=== PATIENT | male | born 1950 | race Caucasian/White ===

== ENCOUNTER 2022-01-10 22:36 | Emergency (ER) | payer OTHER ==
--- OUTSIDE RECORDS SUMMARY | 2022-01-10 22:40 | XMS REPORT | Continuity of Care Document ---
:1950 Author Organization [facility] t Address [address] [place] [address] Care Team Providers Name Role Phone MARELY MONK Attending Clinician Unavailable GIGI CANCHOLA Attending Clinician Unavailable JOSEPH BOYER Attending Clinician Unavailable Nikita May DO Attending Clinician GUERRERO HEMPHILL Attending Clinician Unavailable Rafi Chacon MD Attending Clinician Unknown, Attending Attending Clinician Unavailable Doctor Unassigned, [place] Attending Clinician Unavailable Payers Payer Name Policy Type Policy Number Effective Date Expiration Date S ource Problems Condition Condition Condition Status Onset Resolution Last Treating Co mments Source Name Details Category Date Date Treatment Clinician Date No known No known Disease Unive rs active active ity of problems problems [facility] Allergies, Adverse Reactions, Alerts This patient has no known allergies or adverse reactions. Social History Social Habit Start Date Stop Date Quantity Comments Source History of tobacco Cigarette Smoker University of use [facility] Cigarettes smoked 2019-07-05 2019-07-05 Univers ity of current (pack per 00:00:00 00:00:00 ) - Reported Branch Cigarette 2019-07-05 2019-07-05 University of pack-years 00:00:00 00:00:00 [facility] Alcohol intake 2019-07-05 2019-07-05 Current drinker Unive rsity of 00:00:00 00:00:00 of alcohol [facility] [place] Tobacco use and 2019-07-05 2019-07-05 Never used Universit y of exposure 00:00:00 00:00:00 [facility] Alcohol Comment 2017-11-26 2017-11-26 not drinking Univers ity of 00:00:00 00:00:00 now- social only [facility] Sex Assigned At [birth year] [facility] Smoking Status Start Date Stop Date Source Former smoker 2019-07-05 00:00:00 2019-07-05 00:00:00 [facility] Medications Ordered Filled Start Stop Current Ordering Indication Dosage Frequency Signature Comments Components Source Medication Medication Date Date Medication? Clinician (SIG) Name Name benzonatate 2020-0 Yes [id number] 100mg Take 1 Univers (TESSALON 2-11 capsule by itmaninder of [employer]) 100 00:00: mouth 3 [place] mg capsule 00 (three) Medica l times Branch daily as needed for Cough. fluticasone 2020-0 Yes [id number] 1{spray Use 1 Univers propionate 2-11 } [place] in ity o f 50 00:00: each [place] mcg/actuati 00 nostril Medic al on nasal daily. Branch spray benzonatate 2019-0 Yes [id number] 100mg Take 1 Univers (TESSALON 2-11 capsule by itmaninder of [place]) 100 00:00: mouth 3 [place] as mg capsule 00 (three) Medica l times Branch daily as needed for Cough. fluticasone 2019-0 Yes [id number] 1{spray Use 1 Univers propionate 2-11 } [place] in ity o f 50 00:00: each [place] mcg/actuati 00 nostril Medic al on nasal daily. Branch spray benzonatate 2020-0 Yes [id number] 100mg Take 1 Univers (TESSALON 2-11 capsule by [employer] of [employer]) 100 00:00: mouth 3 [place] as mg capsule 00 (three) Medica l times Branch daily as needed for Cough. fluticasone 2020-0 Yes [id number] 1{spray Use 1 Univers propionate 2-11 } [place] in ity o f 50 00:00: each [place] mcg/actuati 00 nostril Medic al on nasal daily. Branch spray ZOLPIDEM 2017-05 Yes [id number] TAKE 1 Univers mg tablet 0-26 TABLET BY ity o f 00:00: MOUTH [place] 00 EVERY Medical NIGHT AT [place] BEDTIME ZOLPIDEM 10 2017-05 Yes [id number] TAKE 1 Univers mg tablet 0-26 TABLET BY ity o f 00:00: MOUTH [place] 00 EVERY Medical NIGHT AT [place] BEDTIME ZOLPIDEM 10 2017-05 Yes [id number] TAKE 1 Univers mg tablet 0-26 TABLET BY ity o f 00:00: MOUTH [place] 00 EVERY Medical NIGHT AT [place] BEDTIME ZOLPIDEM 2017-05 Yes [id number] TAKE 1 Univers mg tablet 0-26 TABLET BY ity o f 00:00: MOUTH [place] 00 EVERY Medical NIGHT AT [place] BEDTIME cyclobenzap Yes [id number] 10mg Take 1 Univers rine 10 mg 7-05 tablet by ity of tablet 00:00: mouth 2 (two) Medical times [place] daily. lisinopril Yes [id number] 10mg Take 1 U nivers 10 mg 7-05 tablet by ity of tablet 00:00: mouth 00 daily. [facility] Branch finasteride Yes [id number] TK 1 T PO Univers 5 mg tablet 7- 9109 QD ity of 00:00: [place] 00 Medical Branch cyclobenzap Yes [id number] 10mg Take 1 Univers rine 10 mg 7-05 tablet by ity of tablet 00:00: mouth 2 (two) Medical times [place] daily. lisinopril Yes [id number] 10mg Take 1 U nivers 10 mg 7-05 tablet by ity of tablet 00:00: mouth 00 daily. Medical Branch finasteride Yes [id number] TK 1 T PO Univers 5 mg tablet 7- 9109 QD ity of 00:00: [place] 00 Medical Branch cyclobenzap Yes [id number] 10mg Take 1 Univers rine 10 mg 7-05 tablet by ity of tablet 00:00: mouth 2 (two) Medical times [place] daily. lisinopril Yes [id number] 10mg Take 1 U nivers 10 mg 7-05 tablet by ity of tablet 00:00: mouth [place] 00 daily. [facility] Branch finasteride Yes [id number] TK 1 T PO Univers 5 mg tablet 7-05 9109 QD ity of 00:00: [place] 00 Medical Branch cyclobenzap Yes [id number] 10mg Take 1 Univers rine 10 mg 7-05 tablet by ity of tablet 00:00: mouth 2 (two) Medical times [place] daily. lisinopril 2018-0 Yes [id number] 10mg Take 1 U nivers 10 mg 7-05 tablet by ity of tablet 00:00: mouth daily. Medical Branch finasteride 2018-0 Yes [id number] TK 1 T PO Univers 5 mg tablet 7-05 9109 QD ity of 00:00: Medical Branch anastrozole 2017-0 Yes TK 1 T PO U nivers 1 mg tablet 8-14 TWICE A ity o f 00:00: WEEK Medical Branch anastrozole 2016-0 Yes TK 1 T PO U nivers 1 mg tablet 8-14 TWICE A ity o f 00:00: WEEK [facility] anastrozole 2017-0 Yes TK 1 T PO U nivers 1 mg tablet 8-14 TWICE A ity o f 00:00: WEEK [facility] anastrozole 2016-0 Yes TK 1 T PO U nivers 1 mg tablet 8-14 TWICE A ity o f 00:00: WEEK [facility] Immunizations Ordered Filled Immunization Date Status Comments [facility] Immunization Name Name Pneumococcal 13 2017-06-19 Completed Universit y of Conjugate, PCV13 00:00:00 [facility] dical (Prevnar 13) [place] Influenza High Dose 2017-06-19 Completed Unive rsity of 00:00:00 [facility] Pneumococcal 13 2017-06-19 Completed Universit y of Conjugate, PCV13 00:00:00 [facility] dical (Prevnar 13) [place] Influenza High Dose 2017-06-19 Completed Unive rsity of 00:00:00 [facility] Pneumococcal 13 2017-06-19 Completed Universit y of Conjugate, PCV13 00:00:00 [facility] dical (Prevnar 13) Branch Influenza High Dose 2017-06-19 Completed Unive rsity of 00:00:00 [facility] Pneumococcal 13 2017-06-19 Completed Universit y of Conjugate, PCV13 00:00:00 [facility] dical (Prevnar 13) [place] Influenza High Dose 2017-06-19 Completed Unive rsity of 00:00:00 [facility] Vital Signs Vital Name Observation Time Observation Value Comments Source Systolic blood 2019-07-05 21:45:00 150 mm[Hg] Univer sity of pressure [facility] Diastolic blood 2019-07-05 21:45:00 77 mm[Hg] Unive rsity of pressure [facility] Heart rate 2019-07-05 21:45:00 75 /min [facility] Body temperature 2019-07-05 21:45:00 36.67 Diana [facility] Respiratory rate 2019-07-05 21:45:00 20 /min [facility] Body height 2019-07-05 21:45:00 172.7 cm [facility] Body weight 2019-07-05 21:45:00 88.905 kg [facility] BMI 2019-07-05 21:45:00 29.80 kg/m2 [facility] Oxygen saturation in 2019-07-05 21:45:00 93 /min [facility] blood by [facility] Pulse oximetry [place] Procedures Procedure Date / Time Performed Performing Clinician Sourc e POCT RAPID FLU A AND B 2019-07-05 22:23:00 Rafi Chacon [facility] ASSIGNMENT OF BENEFITS 2019-07-05 21:03:50 Doctor Unassigned, No [facility] Encounters Start End Encounter Admission Attending Care Care Encounter Source Date/Time Date/Time Type Type Clinicians Facility Department ID 2021-05-30 2021-05-30 Outpatient [facility] [id number] [place] 00:00:00 00:00:00 MARELY [address] 2021-05-28 2021-05-28 Outpatient [facility] [id number] [place] 00:00:00 00:00:00 MARELY [address] 2021-05-13 2021-05-13 Outpatient [facility] [id number] [address] [place] [address] 00:00:00 00:00:00 MARELY [address] 2021-05-10 2021-05-10 Outpatient [facility] [id number] [address] [place] [address] 00:00:00 00:00:00 MARELY [address] 2021-05-08 2021-05-08 Outpatient [facility] [id number] [address] [place] [address] 00:00:00 00:00:00 MARELY [address] 2021-05-06 2021-05-06 Outpatient LACHO, [facility] [id number] [place] 00:00:00 00:00:00 MARELY [address] 2021-05-02 2021-05-02 Outpatient LACHO, [facility] [id number] [place] 00:00:00 00:00:00 MARELY [address] 2021-04-29 2021-04-29 Outpatient LACHO, [facility] [id number] [place] 00:00:00 00:00:00 MARELY 846 [address] 2021-04-23 2021-04-23 Outpatient LACHO, [facility] [id number] [place] 00:00:00 00:00:00 MARELY [address] 2021-03-05 2021-03-05 Emergency GIGI CANCHOLA [facility] [id number] [place] 00:00:00 00:00:00 512 [facility] 2021-02-14 2021-02-14 Outpatient COSCULLUELA [facility] [id number] [place] 00:00:00 00:00:00 , JOSEPH 840 [facility] i 2021-02-12 2021-02-12 Outpatient COSCULLUELA [facility] [id number] [place] 00:00:00 00:00:00 , JOSEPH 839 [facility] i 2021-02-05 2021-02-05 Outpatient COSCULLUELA [facility] [id number] [place] 00:00:00 00:00:00 , JOSEPH 836 [facility] i 2021-01-29 2021-01-29 Outpatient COSCULLUELA [facility] [id number] [place] 00:00:00 00:00:00 , JOSEPH 834 Method i 2021-01-24 2021-01-24 Outpatient COSCULLUELA [facility] [id number] [place] 00:00:00 00:00:00 , JOSEPH 833 Method i 2021-01-22 2021-01-22 Outpatient COSCULLUELA [facility] [id number] [place] 00:00:00 00:00:00 , JOSEPH 831 [facility] i 2021-01-18 2021-01-18 Outpatient [facility] [id number] [place] 00:00:00 00:00:00 636 [facility] i 2021-01-17 2021-01-[address] [facility] [id number] [place] 00:00:00 00:00:00 , JOSEPH 830 Method i 2021-01-15 2021-01-15 [facility] [id number] [place] 00:00:00 00:00:00 , JOSEPH 828 Method i 2021-01-07 2021-01-[address] [facility] [id number] [place] 00:00:00 00:00:00 , JOSEPH 825 Method i 2021-01-02 2021-01-[address] [facility] [id number] [place] 00:00:00 00:00:00 , JOSEPH 374 Method i 2020-12-21 2020-12-21 Outpatient [facility] [id number] [place] 00:00:00 00:00:00 667 Method i 2020-12-21 2020-12-21 Outpatient [facility] [id number] [place] 00:00:00 00:00:00 270 Method i 2020-07-30 2020-07-30 Patient Lalo RUST [id number] Univers 00:00:00 00:00:00 Outreach Nikita PRIMARY [id number] i ty [id number] [id number] [place] [address] 2020-03-01 2020-03-01 Outpatient GUERRERO HEMPHILL [facility] URO 7507 [facility] 10:38:00 23:59:00 2019-07-05 2019-07-05 Office Ines Rafi Sanam RUST [id number] Univers 15:03:59 15:33:59 Visit Unknown, Attending PRIMARY [id number] it[place] of [id number] [id number] Mt dical [address] [place] 2019-07-05 2019-07-05 Orders Doctor YU [id number] Univers 00:00:00 00:00:00 Only Unassigned, NEL[place] [id number] ity of [place] [facility] [id number] [place] as [id number] [address] 2018-01-11 2018-01-11 Emergency E [facility] [address] [facility] 02:35:00 02:35:00 Results Test Description Test Time Test Comments Results Result Comments Source POCT RAPID FLU A AND B TEST 2019-07-05 22:23:00 Test Item Value Reference Range Interpretation Comme nts POCT INFLUENZA A (test code neg Negative - Negative = 3840) POCT INFLUENZA B (test code neg Negative - Negative = 3841) CIERRA (test code = CIERRA) accurate development and interpretation of all internal controls [facility] [id number] 22:23:00 Test Item Value Reference Range Interpretation Comments POCT INFLUENZA A neg Negative - (test code = 3840) Negative POCT INFLUENZA B neg Negative - (test code = 3841) Negative CIERRA (test code = accurate development and CIERRA) interpretation of all internal controls [facility]
[2022-01-10 23:26] LABS: Absolute Lymphocytes (CBC) 1.9 K/uL (0.7-4.9); Lymphocytes % 27.4 % (15.3-44.8); MCV 91.4 fL (80-100); MPV 8.1 fL (7.6-11.3)
[2022-01-10 23:29] LABS: Protime INR 1.04
[2022-01-10 23:38] LABS: Albumin 3.5 g/dL (3.4-5.0); Bilirubin Direct 0.3 mg/dL (0-0.2); Bilirubin Total 0.9 mg/dL (0.2-1.0); Potassium 3.7 mmol/L (3.5-5.1); Protein, Total 6.2 g/dL (6.4-8.2)
[2022-01-11 00:20] LABS: Urine Blood Negative (Negative); Urine Glucose Negative (Negative); Urine Protein Negative (Negative); Urine Specific Gravity >=1.030 (1.005-1.030)
--- NOTE | 2022-01-11 00:28 | ER ---
Nurse's Notes [facility] Name: Garett Sampson Age: 71 yrs Sex: Male : 1950 Arrival Date: 01/10/2022 Time: 22:41 Bed 6 Private MD: Diagnosis: Syncope Presentation: 01/10 22:41 Chief complaint: EMS states: He was at the bar and took a vape pen that was being jb4 passed around. Pt had a syncopal episode, but was caught and assisted to the ground. Given 500ml of NS via 18g in LAC. BGL 108. Coronavirus screen: At this time, the client does not indicate any symptoms associated with coronavirus-19. Ebola Screen: No symptoms or risks identified at this time. Initial Sepsis Screen: Does the patient meet any 2 criteria? No. Patient's initial sepsis screen is negative. Does the patient have a suspected source of infection? No. Patient's initial sepsis screen is negative. Risk Assessment: Do you want to hurt yourself or someone else? Patient reports no desire to harm self or others. Onset of symptoms was January 10, 2022. Transition of care: patient was not received from another setting of care. 22:41 Method Of Arrival: Ambulatory jb4 22:41 Acuity: MIKE 3 jb4 Historical: - Allergies: 22:43 No Known Allergies; jb4 - PMHx: 22:43 High Cholesterol; hernia; HTN; Prostate cancer; Chronic back pain; jb4 - PSHx: 22:43 hernia Repair; jb4 - Immunization history:: Adult Immunizations up to date. - Social history:: Smoking status: Reported history of juuling and/or vaping. Screenin/20 00:30 Abuse screen: Denies threats or abuse. Denies injuries from another. Nutritional lp1 screening: No deficits noted. Tuberculosis screening: No symptoms or risk factors identified. Fall Risk None identified. Assessment: 01/10 23:00 General: Appears in no apparent distress. Behavior is calm, cooperative, appropriate lp1 for age. Pain: Denies pain. Neuro: Level of Consciousness is awake, alert, obeys commands, Oriented to person, place, time, situation, Pupils are PERRLA. Cardiovascular: Patient's skin is warm and dry. Rhythm is regular. Respiratory: Respiratory effort is even, unlabored. GI: Abdomen is round. : No signs and/or symptoms were reported regarding the genitourinary system. EENT: No signs and/or symptoms were reported regarding the EENT system. Derm: Skin is intact, Skin is dry, Skin is normal. Musculoskeletal: No deficits noted. 01/11 00:26 Reassessment: Patient appears in no apparent distress at this time. Patient is alert, lp1 oriented x 3, equal unlabored respirations, skin warm/dry/pink. Patient denies pain at this time. Vital Signs: 01/10 22:41 BP 123 / 55; Pulse 74; Resp 18; Temp 97.4(TE); Pulse Ox 95% on R/A; Weight 90.72 kg jb4 (R); Height 5 ft. 8 in. (172.72 cm) (R); 01/11 00:00 BP 130 / 54; Pulse 71; Resp 18; Pulse Ox 93% on R/A; lp1 00:49 BP 123 / 59; Pulse 68; Resp 19; Pulse Ox 93% on R/A; lp1 01/10 22:41 Body Mass Index 30.41 (90.72 kg, 172.72 cm) jb4 ED Course: 01/10 22:41 Patient arrived in ED. jb4 22:43 Triage completed. jb4 22:43 Arm band placed on right wrist. jb4 22:46 Kar[facility] Low [facility]NP-C [facility] kb 22:46 Harpal Barboza MD is Attending Physician. kb 23:00 Patient has correct armband on for positive identification. Placed in gown. Bed in low lp1 position. Call light in reach. Client placed on continuous cardiac and pulse oximetry monitoring. NIBP monitoring applied. 23:07 Maintain EMS IV. Dressing intact. Good blood return noted. Site clean \T\ dry. Gauge \T\ lp 1 site: 18g to L AC. 01/11 00:31 No provider procedures requiring assistance completed. lp1 00:48 Lynn Baird, RN is Primary Nurse. lp1 00:50 IV discontinued, No redness/swelling at site. Pressure dressing applied. lp1 Administered Medications: No medications were administered Medication: 00:30 VIS not applicable for this client. lp1 Outcome: 00:27 Discharge ordered by . kb 00:50 Discharged to home ambulatory, with significant other. lp1 00:50 Condition: good 00:50 Discharge instructions given to patient, Instructed on discharge instructions, follow up and referral plans. Demonstrated understanding of instructions, follow-up care. 00:57 Patient left the ED. lp1 Signatures: Karla Low, BEN-C INTEGRATION TECHNICIAN-Lynn Valentin RN RN lp1 Sharad Woods RN RN jb4 Corrections: (The following items were deleted from the chart) 00:57 00:50 Discharged to home with significant other, lp1 lp1 00:57 00:50 Discharge instructions given to patient, Instructed on discharge instructions, lp1 follow up and referral plans. Demonstrated understanding of instructions, follow-up care, lp1
--- NOTE | 2022-01-11 00:28 | EDPHYS ---
Physician Documentation [facility] Name: Garett Sampson Age: 71 yrs Sex: Male : 1950 Arrival Date: 01/10/2022 Time: 22:41 Bed 6 Private MD: ED Physician Harpal Barboza HPI: 01/11 00:41 This 71 yrs old Male presents to ER via Ambulatory with complaints of syncope. kb 00:41 The patient has experienced syncope. Onset: The symptoms/episode began/occurred just kb prior to arrival. Duration: This was a single episode. Context: the episode(s) was witnessed, by a friend, occurred bar, occurred while the patient was sitting, Just prior to the episode the patient experienced no apparent symptoms. Associated injury: The patient did not suffer any apparent associated injury. Associated signs and symptoms: The patient has no apparent associated signs or symptoms. Current symptoms: Currently, the patient is not experiencing any symptoms. The patient has not experienced similar symptoms in the past. The patient has not recently seen a physician. Pt reports he was sitting at the bar and had a syncopal episode while talking to a friend. Friend states pt's head just dropped down and it lasted for about 30 seconds. Pt denies chest pain, shortness of breath or any other symptoms. . Historical: - Allergies: 01/10 22:43 No Known Allergies; jb4 - PMHx: 22:43 High Cholesterol; hernia; HTN; Prostate cancer; Chronic back pain; jb4 - PSHx: 22:43 hernia Repair; jb4 - Immunization history:: Adult Immunizations up to date. - Social history:: Smoking status: Reported history of juuling and/or vaping. ROS: 01/11 00:40 Constitutional: Negative for fever, chills, and weight loss. kb Neuro: Positive for syncope. All other systems are negative. Exam: 01/10 23:09 Constitutional: This is a well developed, well nourished patient who is awake, alert, kb and in no acute distress. Head/Face: Normocephalic, atraumatic. ENT: Moist Mucous membranes Cardiovascular: Regular rate and rhythm with a normal S1 and S2. No gallops, murmurs, or rubs. No pulse deficits. Respiratory: Respirations even and unlabored. No increased work of breathing. Talking in full sentences Abdomen/GI: Soft, non-tender. No distention Skin: Warm, dry with normal turgor. Normal color. MS/ Extremity: Pulses equal, no cyanosis. Neurovascular intact. Full, normal range of motion. Neuro: Awake and alert, GCS 15, oriented to person, place, time, and situation. Moves all extremities. Normal gait. Psych: Awake, alert, with orientation to person, place and time. Behavior, mood, and affect are within normal limits. ECG was reviewed by the Attending Physician. Vital Signs: 22:41 BP 123 / 55; Pulse 74; Resp 18; Temp 97.4(TE); Pulse Ox 95% on R/A; Weight 90.72 kg jb4 (R); Height 5 ft. 8 in. (172.72 cm) (R); 01/11 00:00 BP 130 / 54; Pulse 71; Resp 18; Pulse Ox 93% on R/A; lp1 00:49 BP 123 / 59; Pulse 68; Resp 19; Pulse Ox 93% on R/A; lp1 01/10 22:41 Body Mass Index 30.41 (90.72 kg, 172.72 cm) jb4 MDM: 01/10 22:46 Patient medically screened. kb 01/11 00:40 Data reviewed: vital signs, nurses notes. Data interpreted: Pulse oximetry: on room air kb is 93 %. Interpretation: normal. Counseling: I had a detailed discussion with the patient and/or guardian regarding: the historical points, exam findings, and any diagnostic results supporting the discharge/admit diagnosis, lab results, the need for outpatient follow up, a systems integration analyst, a family practitioner, to return to the emergency department if symptoms worsen or persist or if there are any questions or concerns that arise at home. 01/10 23:06 Order name: Basic Metabolic Panel; Complete Time: 23:39 kb 01/10 23:06 Order name: CBC with Diff; Complete Time: 23:27 kb 01/10 23:06 Order name: CPK; Complete Time: 23:39 kb 01/10 23:06 Order name: Ckmb; Complete Time: 23:39 kb 01/10 23:06 Order name: Hepatic Function; Complete Time: 23:39 kb 01/10 23:06 Order name: Lipase; Complete Time: 23:39 kb 01/10 23:06 Order name: Magnesium; Complete Time: 23:39 kb 01/10 23:06 Order name: Protime (+inr); Complete Time: 23:38 kb 01/10 23:06 Order name: Ptt, Activated; Complete Time: 23:38 kb 01/10 23:06 Order name: UDS; Complete Time: 00:44 kb 01/10 23:06 Order name: EKG; Complete Time: 23:07 kb 01/10 23:06 Order name: Cardiac monitoring; Complete Time: 00:25 kb 01/10 23:06 Order name: EKG - Nurse/Tech; Complete Time: 00:25 kb 01/11 00:20 Order name: Urine Dipstick-Ancillary; Complete Time: 00:25 EDMS 01/10 23:06 Order name: IV Saline Lock; Complete Time: 00:25 kb 01/10 23:06 Order name: Labs collected and sent; Complete Time: 00:25 kb 01/10 23:06 Order name: NPO; Complete Time: 00:25 kb 01/10 23:06 Order name: O2 Per Protocol; Complete Time: 00:25 kb 01/10 23:06 Order name: O2 Sat Monitoring; Complete Time: 00:25 kb 01/10 23:06 Order name: Urine Dipstick-Ancillary (obtain specimen); Complete Time: 00:48 kb EC/19 23:09 Rate is 69 beats/min. Rhythm is regular. QRS Cooks is Normal. CT interval is normal at kb 148 msec. QRS interval is normal at 82 msec. QT interval is normal at 424 msec. Administered Medications: No medications were administered Disposition: 01/11 01:35 Co-signature as Attending Physician, Harpal Barboza MD I agree with the assessment and kdr plan of care. Disposition Summary: 01/11/22 00:27 Discharge Ordered Location: Home kb Condition: Stable kb Diagnosis - Syncope kb Followup: kb - With: Emergency Department - When: As needed - Reason: Worsening of condition Followup: kb - With: Private Physician - When: 2 - 3 days - Reason: Recheck today's complaints, Continuance of care, Re-evaluation by your physician Discharge Instructions: - Discharge Summary Sheet kb - Syncope, [id number] kb Forms: - Medication Reconciliation Form kb - Thank You Letter kb - Antibiotic Education kb - Prescription Opioid Use kb Signatures: Dispatcher [employer] Karla Craft, DIRECTOR OF MARKETING-C DIRECTOR OF MARKETING-Ckb Harpal Barboza MD MD kdr Bryson, James, RN RN jb4
[2022-01-11 00:43] LABS: Barbiturates NEGATIVE (NEGATIVE); Benzodiazepines NEGATIVE (NEGATIVE); Cocaine NEGATIVE (NEGATIVE); METHAMPHETAM NEGATIVE (NEGATIVE); Methadone NEGATIVE (NEGATIVE); Opiates NEGATIVE (NEGATIVE); Phencyclidine NEGATIVE (NEGATIVE); THC Cannibis POSITIVE (NEGATIVE)
[2022-01-11 04:13] VITALS: TEMP 97.4
[2022-01-11 04:15] VITALS: O2SAT 93
[2022-01-11 04:17] VITALS: BP 123/59
--- NOTE | 2022-01-13 08:14 | EKG ---
Test Date: 2022-01-10 Test Time: 22:53:05 It Engineer: GEM MEASUREMENT RESULTS: Intervals: Rate: 69 WV: 148 QRSD: 82 QT: 396 QTc: 424 [place]: P: 60 WV: 148 QRS: -1 T: 5 INTERPRETIVE STATEMENTS: Normal sinus rhythm Normal ECG No previous ECG available for comparison Electronically Signed On 01-13-22 08:07:05 CDT by Kanu Walsh
== END 2022-01-11 00:57 | disposition home or self-care (01) ==
LOC: ER 22:36
DX: R55 Syncope and collapse (principal); I10 Essential (primary) hypertension; E78.00 Pure hypercholesterolemia, unspecified; Z85.46 Personal history of malignant neoplasm of prostate
CPT/HCPCS: 36415; 80048; 80076; 80307; 81003; 82550; 82553; 83690; 83735; 85025; 85610; 85730; 93005; 99281

== ENCOUNTER 2024-03-23 19:47 | Emergency (ER) | payer OTHER ==
[2024-03-23] MEDS ORDERED: ASPIRIN 81 MG CHEWABLE TABLET ONE (20:58)
[2024-03-23] MEDS ORDERED: hydroCHLOROthiazide 25 MG TAB ONE (20:59)
[2024-03-23] MEDS ORDERED: ACETAMINOPHEN 500 MG TAB ONE (20:59)
[2024-03-23 21:03] LABS: Absolute Eosinophils 0.1 K/uL (0-0.5); Absolute Lymphocytes (CBC) 1.2 K/uL (0.7-4.9); Absolute Monocytes 0.7 K/uL (0.1-1.3); Absolute Neutrophil 8.3 K/uL (1.8-8.0); Basophils % 0.4 % (0-1.3); Hematocrit 47.1 % (39.6-49.0); Lymphocytes % 11.6 % (15.3-44.8); MCH 31.8 pg (27.0-35.0); MCHC 33.9 g/dL (32.0-36.0); MCV 93.7 fL (80-100); MPV 7.9 fL (7.6-11.3); Monocytes % 6.4 % (3.3-12.3); Neutrophils % 80.6 % (41.7-73.7); Nucleated Red Blood Cells % 0.1 % (0-0); Platelets 192 thou/uL (152-406); RBC Red Blood Cell Count 5.03 M/uL (4.33-5.43); Red Cell Distribution Width 13.8 % (12.1-15.2)
[2024-03-23 21:21] LABS: Troponin High Sensitivity 11.5 pg/mL (<58.9)
--- NOTE | 2024-03-23 21:34 | RAD REPORT ---
EXAMINATION: ONE VIEW CHEST XR CLINICAL INDICATION: CHEST PAIN TECHNIQUE: Frontal chest projection is submitted. Examination is limited by patient positioning and t echnique. COMPARISON: No prior exam. FINDINGS: The lungs are well inflated and clear. The heart is upper limit of normal in size. No displaced fract ures identified. IMPRESSION: No acute intrathoracic abnormalities.
--- NOTE | 2024-03-23 21:47 | EDPHYS ---
Physician Documentation [facility] Name: Garett Sampson Age: 74 yrs Sex: Male : 1950 Arrival Date: 03/23/2024 Time: 19:47 Bed 14 Private MD: ED Physician Renny Rodriguez HPI: 03/23 20:21 This 74 yrs old Male presents to ER via Ambulatory with complaints of Dizziness, Chest bo1 Pain, Headache, High Blood Pressure. 20:21 The patient presents with dizziness. Onset: The symptoms/episode began/occurred bo1 gradually, 2 week(s) ago. 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 . Modifying factors: the symptoms are aggravated by Noticed that his BP has been high lately since his last PCP visit with Dr Julien in [place] (2 weeks ago). Associated signs and symptoms: Pertinent positives: chest pain, Constant for two weeks. The patient has been recently seen by a physician: the patient's primary care provider, 2 week(s) ago, Dr Julien had increased the lisinopril from 10mg daily to 20mg daily. No fever or cough. Historical: - Allergies: 20:14 No Known Allergies; me1 - PMHx: 20:14 chronic back pain; Hernia; High Cholesterol; Prostate Cancer; HTN; me1 - PSHx: 20:14 hernia repair; prostatectomy (hernia repair); me1 - Immunization history:: Adult Immunizations up to date. - Infectious Disease History:: Denies. - Social history:: Smoking status: Patient/guardian denies using tobacco, but has a distant history of tobacco abuse. ROS: 20:24 Constitutional: Negative for fever, chills, and weight loss bo1 20:24 Cardiovascular: Positive for chest pain, 20:24 Respiratory: Negative for cough, shortness of breath, 20:24 MS/extremity: Positive for swelling, Pt is wearing compression stockings, Exam: 21:37 ECG was reviewed by the Attending Physician. bo1 21:42 Constitutional: This is a well developed, well nourished patient who is awake, alert, bo1 and in no acute distress. 21:42 Head/face: Exam is negative for acute changes, ecchymosis, swelling, 21:42 Eyes: Conjunctiva: no acute changes, 21:42 Neck: External neck: is normal, no acute changes, swelling, is not appreciated, 21:42 Chest/axilla: Inspection: normal, 21:42 Cardiovascular: Rate: normal, Rhythm: regular, Pulses: no pulse deficits are appreciated, 21:42 Respiratory: the patient does not display signs of respiratory distress, Respirations: normal, Breath sounds: are clear throughout, 21:42 Abdomen/GI: Inspection: abdomen appears normal, Palpation: abdomen is soft and non-tender, 21:42 Musculoskeletal/extremity: Extremities: all appear grossly normal, with no appreciated pain with palpation, Wearing compression stockings, Calves: are non-tender, No tenderness or cords, 21:42 Skin: no rash present. 21:42 Neuro: Non focal or AMS; Pt drove to the ER from [place], Vital Signs: 20:00 BP 179 / 94; Pulse 73; Resp 16; Pulse Ox 95% ; me1 20:13 BP 173 / 86; Pulse 73; Resp 17; Temp 98.5; Pulse Ox 96% ; Weight 89.81 kg; Height 5 ft. me1 8 in. ; Pain 5/10; 21:00 BP 158 / 76; Pulse 74; Resp 16; Pulse Ox 93% ; me1 22:13 BP 155 / 76; Pulse 71; Resp 20; Temp 98.4; Pulse Ox 95% ; me1 20:13 Body Mass Index 30.11 (89.81 kg, 172.72 cm) me1 20:13 Pain Scale: Adult me1 MDM: 20:01 Medical Screening Exam initiated bo1 21:45 Differential diagnosis: cardiac arrhythmia, idiopathic dizziness, HTN "out of control". bo1 I considered the following discharge prescriptions or medication management in the emergency department Medications were administered in the Emergency Department. See MAR. Response to treatment: the patient's symptoms have mildly improved after treatment. ED course: Pt is improved. Reassured. Feels better.. 21:48 Data reviewed: vital signs, lab test result(s), cardiac enzymes, CBC, electrolytes, bo1 EKG, radiologic studies, plain films. 03/23 20:09 Order name: Basic Metabolic Panel; Complete Time: 21:36 bo1 03/23 20:09 Order name: CBC with Diff; Complete Time: 21:36 bo1 03/23 20:09 Order name: Troponin HS; Complete Time: 21:36 bo1 03/23 20:09 Order name: XRAY Chest (1 view); Complete Time: 21:36 bo1 03/23 20:09 Order name: EKG; Complete Time: 20:09 bo03/23 20:09 Order name: Cardiac monitoring; Complete Time: 21:29 bo1 03/23 20:09 Order name: EKG - Nurse/Tech; Complete Time: 21:29 bo1 03/23 20:09 Order name: IV Saline Lock; Complete Time: 20:55 bo1 03/23 20:09 Order name: Labs collected and sent; Complete Time: 20:55 bo1 03/23 20:09 Order name: O2 Per Protocol; Complete Time: 20:20 bo1 03/23 20:09 Order name: O2 Sat Monitoring; Complete Time: 20:20 bo1 EC:37 Rate is 66 beats/min. Rhythm is regular. QRS [place] is Normal. [place] interval is normal. QRS bo1 interval is normal. QT interval is normal. No Q waves. T waves are Normal. No ST changes noted. Clinical impression: Normal ECG and Sinus arrythmia. Interpreted by me. Reviewed by me. Administered Medications: 21:02 Drug: Aspirin PO Chewable Tablet 324 mg PO once; 81 mg tablets x 4 Route: PO; me1 22:13 Follow up: Response: No adverse reaction me1 21:02 Drug: Acetaminophen PO 1000 mg PO once Route: PO; me1 21:30 Follow up: Response: No adverse reaction; Pain is decreased me1 21:02 Drug: hydroCHLOROthiazide 25 mg PO once Route: PO; me1 22:13 Follow up: Response: No adverse reaction; Blood pressure is lowered me1 Disposition Summary: 03/23/24 21:47 Discharge Ordered Notes: Location: Home bo1 Problem: chronic bo1 Symptoms: have improved bo1 Condition: Stable bo1 Diagnosis - Essential (primary) hypertension bo1 - Edema, unspecified bo1 Followup: bo1 - With: Private Physician - When: Upon discharge from the Emergency Department - Reason: Recheck today's complaints, Continuance of care Discharge Instructions: - Discharge Summary Sheet bo1 - Hypertension, Adult bo1 - Managing Your Hypertension bo1 Forms: - Medication Reconciliation Form bo1 - Antibiotic Education bo1 - Prescription Opioid Use bo1 - Patient Portal Instructions bo1 - Leadership Thank You Letter bo1 Prescriptions: - Hydrochlorothiazide 25 mg Oral Tablet - take 1 tablet ORAL route once daily .; 30 tablet; Refills: 0, Product Selection bo1 Permitted Signatures: Dispatcher [employer] Marilee Pinto RN RN me1 OeiRenny MD MD bo1
--- NOTE | 2024-03-23 21:47 | ER ---
Nurse's Notes [facility] Name: Garett Sampson Age: 74 yrs Sex: Male : 1950 Arrival Date: 03/23/2024 Time: 19:47 Bed 14 Private MD: Diagnosis: Essential (primary) hypertension;Edema, unspecified Presentation: 03/23 20:13 Chief complaint: Patient states: c/o left sided chest pain, elevated bp and headache x me1 2 weeks. Coronavirus screen: Vaccine status: Patient reports receiving the 2nd dose of the covid vaccine. Ebola Screen: No symptoms or risks identified at this time. Initial Sepsis Screen: Does the patient meet any 2 criteria? No. Patient's initial sepsis screen is negative. Does the patient have a suspected source of infection? No. Patient's initial sepsis screen is negative. Risk Assessment: Do you want to hurt yourself or someone else? Patient reports no desire to harm self or others. Onset of symptoms is unknown. 20:13 Method Of Arrival: Ambulatory me1 20:13 Acuity: MIKE 3 me1 Triage Assessment: 20:14 General: Appears uncomfortable, well groomed, well developed, well nourished, Behavior me1 is calm, cooperative, appropriate for age, Reports. Pain: Complains of pain in head and chest Pain does not radiate. Pain currently is 5 out of 10 on a pain scale. Quality of pain is described as dull, Pain began gradually, Is continuous. EENT: No signs and/or symptoms were reported regarding the EENT system. Neuro: Level of Consciousness is awake, alert, obeys commands, Oriented to person, place, time, situation, Appropriate for age. Neuro: Reports headache. Cardiovascular: Patient's skin is warm and dry. Cardiovascular: Reports chest pain. Respiratory: Airway is patent Respiratory effort is even, unlabored, Respiratory pattern is regular, symmetrical. GI: No signs and/or symptoms were reported involving the gastrointestinal system. : No signs and/or symptoms were reported regarding the genitourinary system. Derm: Skin is intact, is healthy with good turgor, Skin is pink, warm \T\ dry. Musculoskeletal: No signs and/or symptoms reported regarding the musculoskeletal system. Range of motion: intact in all extremities. Historical: - Allergies: 20:14 No Known Allergies; me1 - PMHx: 20:14 chronic back pain; Hernia; High Cholesterol; Prostate Cancer; HTN; me1 - PSHx: 20:14 hernia repair; prostatectomy (hernia repair); me1 - Immunization history:: Adult Immunizations up to date. - Infectious Disease History:: Denies. - Social history:: Smoking status: Patient/guardian denies using tobacco, but has a distant history of tobacco abuse. Screenin:17 [facility] ED Fall Risk Assessment (Adult) History of falling in the last 3 months, me1 including since admission No falls in past 3 months (0 pts) Confusion or Disorientation No (0 pts) Intoxicated or Sedated No (0 pts) Impaired Gait No (0 pts) Mobility Assist Device Used No (0 pt) Altered Elimination No (0 pt) Score/Fall Risk Level 0 - 2 = Low Risk Maintained a safe environment, Provided non-skid footwear, Hourly rounding (assess needs \T\ fall precautionary measures) done. Abuse screen: Denies threats or abuse. Nutritional screening: No deficits noted. Tuberculosis screening: No symptoms or risk factors identified. Assessment: 20:17 General: See triage assessment. . Pain: Complains of pain in chest and head. me1 Vital Signs: 20:00 BP 179 / 94; Pulse 73; Resp 16; Pulse Ox 95% ; me1 20:13 BP 173 / 86; Pulse 73; Resp 17; Temp 98.5; Pulse Ox 96% ; Weight 89.81 kg; Height 5 ft. me1 8 in. ; Pain 5/10; 21:00 BP 158 / 76; Pulse 74; Resp 16; Pulse Ox 93% ; me1 22:13 BP 155 / 76; Pulse 71; Resp 20; Temp 98.4; Pulse Ox 95% ; me1 20:13 Body Mass Index 30.11 (89.81 kg, 172.72 cm) me1 20:13 Pain Scale: Adult me1 ED Course: 19:52 Patient arrived in ED. [id number] 19:58 Marilee Reyes, JOCELYN is Primary Nurse. me1 20:01 Renny Rodriguez MD is Attending Physician. bo1 20:14 Triage completed. me1 20:14 Arm band placed on Patient placed in an exam room. me1 20:17 Patient has correct armband on for positive identification. Bed in low position. Call me1 light in reach. Side rails up X2. Provided Education on: POC. Verbalized understanding.. Client placed on continuous cardiac and pulse oximetry monitoring. NIBP monitoring applied. investment executive on. Pulse ox on. NIBP on. 20:17 No provider procedures requiring assistance completed. Patient maintains SpO2 me1 saturation greater than 95% on room air. 20:55 Initial lab(s) drawn, by me, sent to lab. Inserted saline lock: 22 gauge in right me1 antecubital area, using aseptic technique. 20:55 Basic Metabolic Panel Sent. me1 20:55 CBC with Diff Sent. me1 20:55 Troponin HS Sent. me1 21:23 XRAY Chest (1 view) In Process Unspecified. EDMS 21:29 EKG done, by ED staff, reviewed by Renny Rodriguez MD. me1 22:14 IV discontinued, intact, bleeding controlled, No redness/swelling at site. Pressure me1 dressing applied. Administered Medications: 21:02 Drug: Aspirin PO Chewable Tablet 324 mg PO once; 81 mg tablets x 4 Route: PO; me1 22:13 Follow up: Response: No adverse reaction me1 21:02 Drug: Acetaminophen PO 1000 mg PO once Route: PO; me1 21:30 Follow up: Response: No adverse reaction; Pain is decreased me1 21:02 Drug: hydroCHLOROthiazide 25 mg PO once Route: PO; me1 22:13 Follow up: Response: No adverse reaction; Blood pressure is lowered me1 Medication: 20:17 VIS not applicable for this client. me1 Outcome: 21:47 Discharge ordered by . bo1 22:14 Discharged to home ambulatory, me1 22:14 Condition: stable 22:14 Discharge instructions given to patient, Instructed on discharge instructions, follow up and referral plans. medication usage, Demonstrated understanding of instructions, follow-up care, medications, Prescriptions given X 1, 22:14 Patient left the ED. me1 Signatures: Dispatcher [employer] Paris Mata Michelle, RN RN me1 Renny Rodriguez MD MD bo1
[2024-03-23 23:16] VITALS: BP 155/76; TEMP 98.4; O2SAT 95
--- NOTE | 2024-03-24 11:07 | EKG ---
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
== END 2024-03-23 22:14 | disposition home or self-care (01) ==
LOC: ER 19:47
DX: I10 Essential (primary) hypertension (principal); R60.9 Edema, unspecified; E78.00 Pure hypercholesterolemia, unspecified
CPT/HCPCS: 36415; 71045; 80048; 84484; 85025; 93005; 99285